=== PATIENT | male | born 1985 | race African-American/Black ===

== ENCOUNTER 2016-08-17 13:01 | Emergency (ER) | payer SELFPAY | END 2016-08-17 15:15 | disposition home or self-care (01) | LOC: D.ER 13:01 | DX: J02.9 Acute pharyngitis, unspecified (principal) ==

== ENCOUNTER 2018-06-18 08:38 | Emergency (ER) | payer MEDICAID ==
[~2018-06-18] VITALS: Ht 182.9 cm; Wt 100.0 kg
[2018-06-18 08:58] VITALS: Ht 182.9 cm; Wt 100.0 kg
[2018-06-18] MEDS ORDERED: XANAX2 MG PO (08:59)
[2018-06-18 09:28] LABS: BASOPHILS 0.3 % (0-2); EOSINOPHILS 0.1 % (0-7); HEMATOCRIT 46.7 % (42.0-54.0); HEMOGLOBIN 17.3 g/dL (13.5-17.5); IMMATURE GRANULOCYTES 0.2 % (0-5); LYMPHOCYTES 16.7 % (15-50); MCH 30.8 pg (26.0-34.0); MCV 83.1 fL (80.0-100.0); MEAN PLATELET VOLUME 11.3 fL (7.4-10.4); MONOCYTES 12.2 % (2-11); NEUTROPHILS 70.5 % (40-80); PLATELET COUNT 284 10x3/uL (130-400); RBC 5.62 10x6/uL (4.20-6.10); RDW 13.2 % (11.5-14.5); WBC 13.9 10x3/uL (4.8-10.8)
[2018-06-18 09:51] LABS: APPEARANCE CLEAR (CLEAR); COLOR YELLOW (YELLOW); GLUCOSE NEGATIVE (NEGATIVE); NITRITE NEGATIVE (NEGATIVE); PROTEIN 1+ mg/dL (NEGATIVE)
[2018-06-18 09:52] LABS: BACTERIA FEW /hpf (NONE SEEN); BILIRUBIN 2+ (NEGATIVE); EPITHELIAL CELLS OCC /hpf (0-5); KETONE MODERATE mg/dL (NEGATIVE); RED CELLS - URINE OCC /hpf (0-5); UROBILINOGEN NORMAL (NORMAL); WHITE CELLS - URINE 0-5 /hpf (0-5)
[2018-06-18 10:20] LABS: ALBUMIN 4.6 g/dL (3.4-5.0); ANION GAP 17.5 mmol/L (8-16); BILIRUBIN - TOTAL 0.96 mg/dL (0.2-1.3); CALCIUM 9.4 mg/dL (8.5-10.1); CARBON DIOXIDE 26.4 mmol/L (21.0-32.0); CREATININE - SERUM 1.4 mg/dL (0.6-1.3); MAGNESIUM - SERUM 1.8 mg/dL (1.8-2.4); PROTEIN - SERUM 8.2 g/dL (6.4-8.2)
[2018-06-18 10:21] LABS: POTASSIUM - SERUM 2.9 mmol/L (3.5-5.1)
[2018-06-18] MEDS ORDERED: ZOFRAN4 MG PO (13:02)
[2018-06-18] MEDS ORDERED: PROTONIX40 MG PO (13:02)
[2018-06-18 14:00] VITALS: BP 126/78
== END 2018-06-18 14:01 | disposition home or self-care (01) ==
LOC: D.ER 08:38
PROVIDERS: Family Medicine
DX: E87.6 Hypokalemia (principal); K29.70 Gastritis, unspecified, without bleeding; R11.10 Vomiting, unspecified